=== PATIENT | female | born 1960 | race American Indian/Alaskan Native ===

== ENCOUNTER 2016-09-20 08:59 | Emergency (ER) | payer OTHER ==
--- NOTE | 2016-09-20 10:46 | Emergency Department Report ---
Entered by IDALIA MULLIGAN, acting as scribe for LINWOOD SANDERSON NP. Chief Complaint: Pain General Stated Complaint: FACE SWELLING Time Seen by Provider: 09/20/16 09:25 - HPI History of Present Illness: 56 y/o female presents c/o upper right tooth pain that started this morning. Sx include throat pain and mouth swelling. r upper dental pain swelling over night no [facility] intact no fever new to area and no pcp or dmd vss nad - ROS Review of Systems: as noted in HPI - Exam Vital Signs: Vital Signs 09/20/16 09:17 Temperature 98.2 F Pulse Rate 77 Respiratory 20 Rate Blood Pressure 162/105 O2 Sat by Pulse 100 Oximetry Physical Exam: as noted in HPI MSE screening note: Focused history and physical exam performed. Due to findings the following was ordered: ED Disposition for MSE Condition: Stable This documentation as recorded by the scribe,IDALIA MULLIGAN,accurately reflects the service I personally performed and the decisions made by me,LINWOOD SANDERSON NP.
[2016-09-20 13:03] VITALS: BP 169/97
[2016-09-20] MEDS ORDERED: BICILLIN L-A IM ONE ×2 (13:04→13:05)
--- NOTE | 2016-09-20 13:16 | Emergency Department Report ---
ED ENT HPI - General Chief complaint: Pain General Stated complaint: FACE SWELLING Time Seen by Provider: 09/20/16 13:12 Source: patient Mode of arrival: Ambulatory Limitations: No Limitations - Related Data Previous Rx's Medication Instructions Recorded Last Taken Type Clindamycin [Clindamycin CAP] 300 mg PO Q6H #40 capsule 09/20/16 Unknown Rx Naproxen [Naprosyn TAB] 500 mg PO BID PRN #20 tablet 09/20/16 Unknown Rx Allergies Allergy/AdvReac Type Severity Reaction Status Date / Time No Known Allergies Allergy Unverified 09/20/16 09:17 ED Dental HPI - General Chief complaint: Pain General Stated complaint: FACE SWELLING Time Seen by Provider: 09/20/16 13:12 Source: patient Mode of arrival: Ambulatory Limitations: No Limitations - Related Data Previous Rx's Medication Instructions Recorded Last Taken Type Clindamycin [Clindamycin CAP] 300 mg PO Q6H #40 capsule 09/20/16 Unknown Rx Naproxen [Naprosyn TAB] 500 mg PO BID PRN #20 tablet 09/20/16 Unknown Rx Allergies Allergy/AdvReac Type Severity Reaction Status Date / Time No Known Allergies Allergy Unverified 09/20/16 09:17 ED Review of Systems ROS: Stated complaint: FACE SWELLING Other details as noted in HPI Comment: All other systems reviewed and negative Constitutional: no symptoms reported Eyes: as per HPI ENT: as per HPI Respiratory: no symptoms reported Cardiovascular: as per HPI Endocrine: no symptoms reported Gastrointestinal: as per HPI Genitourinary: dysuria Musculoskeletal: as per HPI Skin: as per HPI Neurological: as per HPI, headache Psychiatric: as per HPI Hematological/Lymphatic: as per HPI ED Past Medical Hx - Past Medical History Previous Medical History?: Yes Hx Hypertension: Yes - Surgical History Past Surgical History?: Yes Additional Surgical History: x 3 - Social History Smoking Status: Current Every Day Smoker Substance Use Type: Alcohol, Non Opiate Pain - Medications Home Medications: Home Medications Medication Instructions Recorded Confirmed Last Taken Type Clindamycin [Clindamycin CAP] 300 mg PO Q6H #40 capsule 09/20/16 Unknown Rx Naproxen [Naprosyn TAB] 500 mg PO BID PRN #20 tablet 09/20/16 Unknown Rx ED Physical Exam - General Limitations: No Limitations General appearance: alert - Head Head exam: Present: atraumatic - Eye Eye exam: Present: normal appearance Pupils: Present: normal accommodation - ENT ENT exam: Present: normal exam - Neck Neck exam: Present: normal inspection - Respiratory Respiratory exam: Present: normal lung sounds bilaterally - Cardiovascular Cardiovascular Exam: Present: regular rate - GI/Abdominal GI/Abdominal exam: Present: soft, normal bowel sounds. Absent: distended, tenderness, guarding, rebound, rigid, diminished bowel sounds - Extremities Exam Extremities exam: Present: normal inspection - Back Exam Back exam: Present: normal inspection - Neurological Exam Neurological exam: Present: alert, altered, oriented X3 - Psychiatric Psychiatric exam: Present: normal affect - Skin Skin exam: Present: warm, dry, intact, normal color ED Course Vital Signs 09/20/16 09/20/16 09:17 13:02 Temperature 98.2 F 99.8 F H Pulse Rate 77 81 Respiratory 20 18 Rate Blood Pressure 162/105 Blood Pressure 169/97 [Left] O2 Sat by Pulse 100 100 Oximetry ED Medical Decision Making - Medical Decision Making vss. nad. temp 98 on dc. no cva tenderness no concern std medicated dc home w dc instructions Critical care attestation.: If time is entered above; I have spent that time in minutes in the direct care of this critically ill patient, excluding procedure time. ED Disposition Clinical Impression: Pain, dental, Hypertension Disposition: DISCHARGED TO HOME OR SELFCARE Is pt being admited?: No Does the pt Need Aspirin: No Condition: Good Instructions: DASH Eating Plan (ED), Low Sodium Diet (ED), Toothache (ED), Hypertension (ED) Additional Instructions: DMD PORSCHE Decrease salt in diet follow up pcp for bp recheck. it was intially high today but could be pain related Prescriptions: Clindamycin [Clindamycin CAP] 300 mg PO Q6H #40 capsule Naproxen [Naprosyn TAB] 500 mg PO BID PRN #20 tablet PRN Reason: Pain Referrals: PRIMARY CARE,MD [Primary Care Provider] - 3-5 Days Time of Disposition: 13:14
== END 2016-09-20 13:28 | disposition home or self-care (01) ==
LOC: ED 08:59
DX: K08.89 Other specified disorders of teeth and supporting structures (principal); I10 Essential (primary) hypertension; F17.200 Nicotine dependence, unspecified, uncomplicated
CPT/HCPCS: 96372; 99282; J0561